=== PATIENT | female | born 1980 | race African-American/Black ===

== ENCOUNTER 2021-12-12 12:22 | Emergency (ER) | payer SELFPAY ==
[~2021-12-12] VITALS: Ht 162.6 cm; Wt 63.5 kg
[2021-12-12 13:23] VITALS: BP 134/91
--- NOTE | 2021-12-12 13:39 | NUR ---
BS BS = 273.
[2021-12-12 13:45] LABS: BILIRUBIN,URINE NEGATIVE (NEGATIVE)
--- NOTE | 2021-12-12 14:05 | DIREP ---
PROCEDURE:CHEST 2 VIEWS COMPARISON:None. INDICATIONS:Cough and SOB FINDINGS: LUNGS/PLEURA:No significant pulmonary parenchymal abnormalities or pleural effusion. CARDIAC:Normal cardiac silhouette and normal pulmonary vascularity. MEDIASTINUM:Normal BONES:Normal OTHER:No additional findings. CONCLUSION:No acute cardiopulmonary process. Dictated by: Lana Lopez MD on 12/12/2021 at 02:03 PM
[2021-12-12 14:57] LABS: BASOPHIL % 0.5 % (0.0-0.2); EOSINOPHIL # 0.1 10^3/uL (0.0-0.2); EOSINOPHIL % 3.3 % (0.0-5.0); LYMPHOCYTES # 1.46 10^3/uL1 (1.0-4.8); LYMPHOCYTES % 36.9 % (24.0-44.0); MEAN CORP HGB 25.9 pg (26-34); MONOCYTES # 0.3 10^3/uL (0.3-0.8); MONOCYTES % 8.6 % (5.0-12.0); NEUTROPHILS % 50.7 % (41.0-85.0); RED CELL DISTRIBUTION WIDTH 13.5 % (11.5-14.5)
[2021-12-12 15:20] LABS: CARBON DIOXIDE 30.3 mmol/L (20.0-32)
[2021-12-12] MEDS ORDERED: TORADOL IM STA (15:44)
--- NOTE | 2021-12-12 15:44 | ER.PDOC ---
General Chief Complaint: Cough/Congestion Stated Complaint: HEADACHE,DIFFICULTY BREATHING, TRAVEL OUT OF US: No Time seen by MD: 15:46 Source: patient Exam Limitations: no limitations History of Present Illness Initial Comments Migraine headache for 1 week. Patient has chronic migraine and has taken zzwa-hzp-[id number] remedies without improvement. Patient also has chest pain worse with movement for 1 week. No shortness of breath. No nausea or vomiting. She also complains of whitish/milky vaginal itching discharge for 1 week. No fever or chills. She told me that her headache is similar to previous headaches. Timing/Duration: 1 week Severity: moderate Associated Symptoms: chest pain, headaches Allergies: Coded Allergies: No Known Allergies (Unverified , 12/12/21) Past Medical History Medical History: diabetes Surgical History: hysterectomy, tubal Family History Significant Family History: no pertinent family hx Social History Smoking: non-smoker Alcohol Use: occassionally Drug Use: none Review of Systems Constitutional: no symptoms reported EENTM: no symptoms reported Respiratory: no symptoms reported Cardiovascular: see HPI Gastrointestinal: no symptoms reported Genitourinary: see HPI All Other Systems: Reviewed and Negative Physical Exam General Appearance: No Apparent Distress, WD/WN EENT: eyes nml inspection Neck: Non-Tender, Full Range of Motion, Supple, Normal Inspection Respiratory: lungs clear, normal breath sounds, no respiratory distress, no accessory muscle use, other (chest wall tenderness) CVS: reg rate & rhythm, no murmur, no gallop, pulses nml, nml capillary refill Gastrointestinal: Normal Bowel Sounds, No Organomegaly, No Pulsatile Mass, Non Tender Back: Normal Inspection, No CVA Tenderness, No Vertebral Tenderness Extremities: Normal Range of Motion Neurologic/Psychiatric: language interpreter II-XII NML as Tested Skin: Normal Color Results/Orders Results/Orders Orders - ROLA PARR MD Strep Screen (12/12/21 13:30) Urinalysis (12/12/21 13:30) Influenza A&B (12/12/21 13:30) Covid19 Antigen Sofia Millicent (12/12/21 13:30) Xr Chest 2v (12/12/21 13:30) Urine Culture (12/12/21 13:12) Cbc With Auto Diff (12/12/21 14:35) Comprehensive Metabolic Panel (12/12/21 14:35) Creatine Kinase (12/12/21 14:35) D-Dimer (12/12/21 14:35) Ekg-Routine (12/12/21 14:35) Troponin I High Sensitivity (12/12/21 14:35) Ketorolac Tromethamine (Toradol) (12/12/21 15:44) Vital Signs Date Time Temp Pulse Resp B/P (MAP) Pulse Ox O2 Delivery O2 Flow Rate FiO2 12/12/21 13:23 98.7 70 18 98 12/12/21 13:23 98.7 70 18 12/12/21 13:23 98.7 70 18 134/91 (105) 98 Room Air* 0 21 Laboratory Tests Test 12/12/21 13:12 12/12/21 13:30 12/12/21 13:39 12/12/21 14:43 Urine Collection Type UNKNOWN Urine Color YELLOW Urine Appearance CLOUDY Urine Bilirubin NEGATIVE (NEGATIVE) Urine Ketones NEGATIVE (NEGATIVE) Urine Specific [place] 1.025 (1.005-1.030) Urine pH 7.0 (4.5-8.0) Urine Protein 1+ (NEGATIVE) H Urine Urobilinogen 1.0 E.U./dL (0.2) Urine Nitrate NEGATIVE (NEGATIVE) Urine Leukocyte Esterase 1+ (NEGATIVE) H Urine Glucose (Auto)(UA) 500 mg/dL (NEGATIVE) H Urine Blood TRACE-INTACT (NEGATIVE) H Urine RBC 2-5 RBC/HPF (NONE SEEN) Urine WBC 5-10 WBC/HPF (0-2) H Urine Squamous Epithelial Cells MANY (<=FEW) Urine Bacteria MANY (NONE SEEN) H Influenza Type A Antigen NEGATIVE (NEG) Influenza Type B Antigen NEGATIVE (NEG) SARS-CoV-2 Antigen (Rapid) NEGATIVE (NEGATIVE) Group A Streptococcus Screen NEGATIVE (NEGATIVE) POC Glucose 273 (70 - 110) H White Blood Count 4.0 10^3/uL (4.5-11.0) L Red Blood Count 5.22 10^6/uL (4.00-5.20) H Hemoglobin 13.5 g/dL (12.0-15.0) Hematocrit 42.5 % (36.0-46.0) Mean Corpuscular Volume 81.4 fL (78-100) Mean Corpuscular Hemoglobin 25.9 pg (26-34) L Mean Corpuscular Hemoglobin Concent 31.8 g/dL (33-36.5) L Red Cell Distribution Width 13.5 % (11.5-14.5) Platelet Count 249 10^3/uL (150-400) Mean Platelet Volume 10.7 fL (7.8-11.0) Neutrophils (%) (Auto) 50.7 % (41.0-85.0) Lymphocytes (%) (Auto) 36.9 % (24.0-44.0) Monocytes (%) (Auto) 8.6 % (5.0-12.0) Neutrophils # (Auto) 2.0 10^3/uL (1.8-7.7) Lymphocytes # (Auto) 1.46 10^3/uL1 (1.0-4.8) Monocytes # (Auto) 0.3 10^3/uL (0.3-0.8) Absolute Immature Granulocyte (auto 0 10^3 u/L (0-2) Absolute Eosinophils (auto) 0.1 10^3/uL (0.0-0.2) Immature Granulocytes % 0.00 % (0.00-0.50) Eosinophils % 3.3 % (0.0-5.0) Basophils % 0.5 % (0.0-0.2) H Basophils # 0.0 10^3/uL (0.0-0.1) D-Dimer 0.21 mg/L (0.19-0.49) Sodium Level 137 mmol/L (132-145) Potassium Level 4.4 mmol/L (3.6-5.2) Chloride Level 99.0 mmol/L (96-109) Carbon Dioxide Level 30.3 mmol/L (20.0-32) Anion Gap 12.1 Blood Urea Nitrogen 11 mg/dL (7-18) Creatinine 0.79 mg/dL (0.59-1.40) Estimated GFR () 97.5 (>/=60) Est GFR (CKD-EPI)(Non-Afr Estonian) 80.6 (>/=60) BUN/Creatinine Ratio 13.0 Glucose Level 259 mg/dL (70-110) H Calcium Level 8.8 mg/dL (8.4-10.5) Total Bilirubin 0.5 mg/dL (0.2-1.0) Aspartate Amino Transferase (AST) 37 U/L (0-35) H Alanine Aminotransferase (ALT) 69 U/L (12-78) Alkaline Phosphatase 54 U/L (50-136) Total Creatine Kinase 120 U/L (26-192) Troponin I High Sensitivity 6 ng/L (0-50) Total Protein 7.5 g/dL (6.4-8.2) Albumin 3.9 g/dL (3.4-5.0) Globulin 3.6 Albumin/Globulin Ratio 1.083 Progress Progress Chemistry show glucose of 257, AST of 37, rest of chemistry is unremarkable. Cardiac enzymes are normal. D-dimer is 0.21. WBC is 4.0 and hemoglobin is 13.5. Urinalysis is consistent with UTI. Chest x-ray shows no acute abnormality. Strep is negative. Flu is negative. COVID is negative. Patient is feeling better to go home after she had a Toradol shot for headache. Overall she is happy with the care. EKG/XRAY/CT/US EKG: NSR (HR 71, normal ) EKG Comments: HR 71, normal P axis ER DEPART Departure Time of Disposition: 15:57 Disposition: 01 HOME / SELF CARE / HOMELESS Impression: Primary Impression: Tenderness of chest wall Additional Impressions: Migraine headache UTI (urinary tract infection) Vaginal candidiasis Condition: Improved Referrals: PCP,UNKNOWN (PCP) PRIMARY CARE PROVIDER Additional Instructions: Ibuprofen Bactrim DS Diflucan Follow-up with your PCP in 2 to 3 days Return to ED if worsening or concerns Duration or Time Spent with Pa: 60 min Problem Qualifiers Additional Impressions: Migraine headache Migraine type: unspecified Status migrainosus presence: with status migrainosus Intractability: intractable Qualified Codes: G43.911 - Migr hayden, unspecified, intractable, with status migrainosus UTI (urinary tract infection) Urinary tract infection type: site unspecified Hematuria presence: with hematuria Qualified Codes: N39.0 - Urinary tract infection, site not specified; R31.9 - Hematuria, unspecified ROLA PARR MD Dec 12, 2021 15:44
[2021-12-12] MEDS ORDERED: TORADOL ONE (15:53)
--- NOTE | 2021-12-13 09:23 | PCM.EKG ---
[facility] Test Date: 2021-12-12 Test Time: 14:44:34 Pat Name: JESSICA BAKER Department: Patient ID: [id number] Room: Gender: F Manager Copy: LEROY : 1980 Requested By: ROLA PARR Order Number: [id number] Reading MD: Rola PARR Measurements Intervals Dexter Rate: 71 P: 58 MD: 146 QRS: 24 QRSD: 76 T: -7 QT: 407 QTc: 443 Interpretive Statements Sinus rhythm Abnormal R-wave progression, early transition LVH by voltage Borderline T abnormalities, diffuse leads No previous ECG available for comparison Electronically Signed On 12-13-2021 15:44:45 CDT by Rola PARR Please click the below link to view image of tracing.
== END 2021-12-12 16:14 | disposition home or self-care (01) ==
LOC: ER 12:22
DX: R07.89 Other chest pain (principal); Z20.822 Contact with and (suspected) exposure to COVID-19; B37.3 Candidiasis of vulva and vagina; E11.65 Type 2 diabetes mellitus with hyperglycemia; F10.20 Alcohol dependence, uncomplicated; G43.911 Migraine, unspecified, intractable, with status migrainosus; N39.0 Urinary tract infection, site not specified; Z90.710 Acquired absence of both cervix and uterus
CPT/HCPCS: 99285; 71046; 87426; 96372; 87086; 80053; 85025; 82948; 36415; 85379; 84484; 87070; 87880; 87804 ×2; 81001; 82550; 93005; J1885